=== PATIENT | female | born 1975 | race Hispanic/Latino ===

== ENCOUNTER 2017-08-26 22:15 | Emergency (ER) | payer MEDICAID ==
[~2017-08-26] VITALS: Ht 152.4 cm; Wt 60.8 kg
--- OUTSIDE RECORDS SUMMARY | ~2017-08-26 | XMS | Clinical Summary ---
Demographics + + + | Address | [address] | | | [place] [address] | + + + | Home Phone | | + + + | Preferred Language | Unknown | + + + | Marital Status | Single | + + + | Judaism Affiliation | NRP | + + + | Race | White | + + + | Ethnic Group | or | + + + Author + + + | Author | [facility] | + + + | Organization | [facility] | + + + | Address | Unknown | + + + | Phone | Unavailable | + + + Support + + + + + | Name | Relationship | Address | Phone | + + + + + | Adilene Will | ECON | [place] | | | | | [address] | | + + + + + Care Team Providers + +------+ + | Care Exec. Creative Director Name | Role | Phone | + +------+ + | Faby Newsome MD | PP | | + +------+ + Source Comments AUGUSTIN is fully live on both [facility] Ambulatory and [facility] InPatient.[facility] Allergies + + + + + + | Active Allergy | Reactions | Severity | Noted | Comments | | | | | Date | | + + + + + + | Chlorhexidine | Rash | | 04/13/20 | Pt. Stated it | | | | | 16 | burned and was very | | | | | | uncomfortable when | | | | | | using taco cloth | | | | | | wipes | + + + + + + | Latex | Edema | High | 08/05/19 | | | | | | 16 | | + + + + + + | Sulfamethoxazole-Tri | Rash | Medium | 08/05/19 | | | methoprim | | | 16 | | + + + + + + Current Medications + + +--------+---------+------+------+-------+ | Prescription | Sig. | Disp. | Refills | Star | End | Statu | | | | | | t | Date | s | | | | | | Date | | | + + +--------+---------+------+------+-------+ | BECLOMETHASONE | Inhale. | | | | | Activ | | DIPROPIONATE (QVAR | | | | | | e | | INHL) | | | | | | | + + +--------+---------+------+------+-------+ | albuterol 90 | Inhale every four | | | | | Activ | | mcg/actuation | hours as needed. | | | | | e | | inhalation HFA | | | | | | | | aerosol inhaler | | | | | | | + + +--------+---------+------+------+-------+ | lisinopril 20 mg | Take 40 mg by mouth | | | | | Activ | | oral tablet | once daily. | | | | | e | + + +--------+---------+------+------+-------+ | diphenhydrAMINE | Take 25 mg by mouth | | | | | Activ | | (BENADRYL) 25 mg | every six hours as | | | | | e | | oral capsule | needed. | | | | | | + + +--------+---------+------+------+-------+ | amLODIPine 10 mg | Take 10 mg by mouth | | | | | Activ | | oral tablet | once daily. | | | | | e | + + +--------+---------+------+------+-------+ | promethazine 12.5 | Take 1 tablet by | 30 | 0 | 02/0 | | Activ | | mg oral | mouth every six | tablet | | 5/20 | | e | | tabletIndications: | hours as needed for | | | 17 | | | | Infection of lumbar | nausea/vomiting. | | | | | | | spine (HCC) | | | | | | | + + +--------+---------+------+------+-------+ | | | | | 02/1 | | Activ | | triamterene-hydrochl | | | | 4/20 | | e | | orothiazide 37.5-25 | | | | 17 | | | | mg oral capsule | | | | | | | + + +--------+---------+------+------+-------+ | | Take 1-2 tablets by | 15 | 0 | 10/2 | | Activ | | HYDROcodone-acetamin | mouth every six | tablet | | 2/20 | | e | | ophen 5-325 mg oral | hours as needed for | | | 17 | | | | tablet | severe pain. Not to | | | | | | | | exceed 3250 mg of | | | | | | | | acetaminophen from | | | | | | | | all products per 24 | | | | | | | | hour period.Do not | | | | | | | | drive on this | | | | | | | | medication | | | | | | + + +--------+---------+------+------+-------+ Active Problems + + + | Problem | Noted Date | + + + | Lumbar degenerative disc disease | 08/05/2015 | + + + | Lumbar radiculopathy | 08/05/2015 | + + + | Facet hypertrophy | 08/05/2015 | + + + Family History + +------+--------+ + | Relation | Name | Status | Comments | + +------+--------+ + Social History + + + +--------+ + | Tobacco Use | Types | Packs/Day | Years | Date | | | | | Used | | + + + +--------+ + | Former Smoker | Cigarettes | 0.1 | 27 | Quit: 04/23/2015 | + + + +--------+ + + +---+---+ + | Smokeless Tobacco: | | | Quit: | | Former User | | | 04/05/20 | | | | | 15 | + +---+---+ + + + +---------+ + | Alcohol Use | Drinks/We | oz/Week | Comments | | | ek | | | + + +---------+ + | Yes | 0 | 0.0 | rarely | | | Standard | | | | | drinks or | | | | | | | | | | equivalen | | | | | t | | | + + +---------+ + + + + | Sex Assigned at | Date Recorded | | | | + + + | Not on file | | + + + Last Filed Vital Signs + + + + | Vital Sign | Reading | Time Taken | + + + + | Blood Pressure | 112/74 | 03/24/2017 4:58 PM PDT | + + + + | Pulse | 92 | 03/24/2017 4:58 PM PDT | + + + + | Temperature | 36.8 C (98.2 F) | 03/24/2017 4:06 PM PDT | + + + + | Respiratory Rate | 16 | 03/24/2017 4:58 PM PDT | + + + + | Oxygen Saturation | 99% | 03/24/2017 4:58 PM PDT | + + + + | Inhaled Oxygen | - | - | | Concentration | | | + + + + | Weight | 63 kg (139 lb) | 12/20/2016 2:23 PM PDT | + + + + | Height | 151.1 cm (4' 11.5") | 12/20/2016 2:23 PM PDT | + + + + | Body Mass Index | 27.6 | 12/20/2016 2:23 PM PDT | + + + + Plan of Treatment + + + + + | Health Maintenance | Due Date | Last Done | Comments | + + + + + | PRECONCEPTION/CONTRA | | | | | CEPTION COUNSELING | 8 | | | + + + + + | INFLUENZA VACCINE | | | | | (FLU SHOT) | 7 | | | + + + + + Implants + +------+-------+ +--------+--------+--------+ | Implanted | Type | Area | Manufacture | Device | Expira | Model | | | | | r | | tion | / | | | | | | Identi | Date | Serial | | | | | | fier | | / Lot | + +------+-------+ +--------+--------+--------+ | [place] [employer] Orthoblend | | N/A: | [employer] | | 01/09/ | [id number] | | SmallImplanted: Qty: 1 on | | Spine | INC | | 2017 | | | 04/13/2016 by Jonh Watson | | | | | | /[id number] | | MD Shruti | | | | | | 1-123 | | | | | | | | / | + +------+-------+ +--------+--------+--------+ | Interbody Spacer + | | N/A: | [employer] | | 11/21/ | [id number] | | CoverplateImplanted: Qty: 1 | | Spine | INC | | 2023 | 2 / | | on 04/13/2016 by Shirley, | | | | | | /60CF | | Jonh Bahena MD | | | | | | | + +------+-------+ +--------+--------+--------+ | 7.5 X 40mm Ats | | N/A: | [employer] | | | [id number] | | ScrewsImplanted: Qty: 4 on | | Spine | INC | | | [id number] | | 04/13/2016 by Jonh Watson | | | | | | / | | MD Shruti | | | | | | /[id number] | | | | | | | | 055 | + +------+-------+ +--------+--------+--------+ | 45 Mm RodImplanted: Qty: 2 on | | N/A: | [employer] | | | [id number] | | 04/13/2016 by Jonh Watson | | Spine | INC | | | 045 / | | MD Shruti | | | | | | /[id number] | | | | | | | | 63W | + +------+-------+ +--------+--------+--------+ | Set ScrewImplanted: Qty: 4 on | | N/A: | [employer] | | | [id number] | | 04/13/2016 by Jonh Watson | | Spine | INC | | | 0 / / | | MD Shruti | | | | | | | + +------+-------+ +--------+--------+--------+ + +------+-------+ +--------+--------+--------+ | Explanted | Type | Area | Manufacture | Device | Expira | Model | | | | | r | | tion | / | | | | | | Identi | Date | Serial | | | | | | fier | | / Lot | + +------+-------+ +--------+--------+--------+ | 50 Mm RodExplanted: Qty: 1 on | | N/A: | [employer] | | | [id number] | | 04/13/2016 by Jonh Watson | | Spine | INC | | | 050 / | | MD Shruti | | | | | | /[id number] | | | | | | | | 36W | + +------+-------+ +--------+--------+--------+ | Set ScrewsExplanted: Qty: 1 | | N/A: | | | | [id number] | | on 04/13/2016 | | Spine | | | | 0 / / | + +------+-------+ +--------+--------+--------+ Results Not on filefrom Last 3 Months
--- OUTSIDE RECORDS SUMMARY | ~2017-08-26 | XMS | Clinical Summary ---
Demographics + + + | Address | [address] | | | [place] [address] | + + + | Home Phone | | + + + | Preferred Language | Unknown | + + + | Marital Status | Single | + + + | Mu-Ism Affiliation | NRP | + + + [...] [place] | | | | | [address] | | + + + + + Care Team Providers + +------+ + | Care Tracer Powder Blender Name | Role | Phone | + +------+ + | Faby Newsome MD | PP | | + +------+ + Source Comments AUGUSTIN is fully live on both [facility] Ambulatory and [facility] InPatient.[facility] Allergies + + + + + [...] / Lot | + +------+-------+ +--------+--------+--------+ | [place] [employer] Orthoblend | | N/A: | [employer] | | 01/09/ | [id number] | | SmallImplanted: Qty: 1 on | [...] N/A: | [employer] | | 11/21/ | [id number] | | CoverplateImplanted: Qty: 1 | | Spine | INC | | 2023 | 2 / | | on 04/13/2016 by Shirley, | | | | | | /60CF | | Jonh Bahena MD | | | | | | | + +------+-------+ +--------+--------+--------+ | 7.5 X 40mm Ats | | N/A: | [employer] | | | [id number] | | ScrewsImplanted: Qty: 4 on | | Spine | INC | | | [id number] | | 04/13/2016 by Jonh Watson | | | | | | / | | MD Shruti | | | | | | /[id number] | | | | | | | | 055 | + +------+-------+ +--------+--------+--------+ | 45 Mm RodImplanted: Qty: 2 on | | N/A: | [employer] | | | [id number] | | 04/13/2016 by Jonh Watson | | Spine | INC | | | 045 / | | MD Shruti | | | | | | /[id number] | | | | | | | | 63W | + +------+-------+ +--------+--------+--------+ | Set ScrewImplanted: Qty: 4 on | | N/A: | [employer] | | | [id number] | | 04/13/2016 by Jonh Watson | [...] | N/A: | [employer] | | | [id number] | | 04/13/2016 by Jonh Watson | | Spine | INC | | | 050 / | | MD Shruti | | | | | | /[id number] | | | | | | | | 36W | + +------+-------+ +--------+--------+--------+ | Set ScrewsExplanted: Qty: 1 | | N/A: | | | | [id number] | | on 04/13/2016 | | Spine | | | | 0 / / | + +------+-------+ +--------+--------+--------+ Results Not on filefrom Last 3 Months
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
[~2017-08-26 22:15] MED LIST: ALBUTEROL S5 MG/1 ML INH; AMLODIPINE BESY10 MG PO; AMOXICILLIN500 MG PO; LISINOPRIL40 MG PO; METOPROLOL SUCC25 MG PO; QVAR7.3 GM INH; TRAMADOL HCL50 MG PO
[2017-08-26] MEDS ORDERED: NORCO 5-325 TA1 EACH PO (22:56)
== END 2017-08-26 23:12 | disposition home or self-care (01) ==
LOC: ED 22:15
DX: G89.18 Other acute postprocedural pain (principal); M79.672 Pain in left foot; Z91.040 Latex allergy status; Z88.8 Allergy status to other drugs, medicaments and biological substances; Z88.1 Allergy status to other antibiotic agents; Z79.2 Long term (current) use of antibiotics
CPT/HCPCS: 99283